=== PATIENT | female | born 1995 | race Caucasian/White ===

== ENCOUNTER 2016-08-20 15:37 | Emergency (ER) | payer BC, OTHER ==
[~2016-08-20] VITALS: Ht 157.5 cm; Wt 55.3 kg
--- NOTE | 2016-08-20 15:59 | NUR ---
A/O x 4, vss, nad noted; c/o sore throat x 3 days; fever; "brother had strep throat". Proceed w/ orders.
--- NOTE | 2016-08-20 16:16 | NUR ---
Patient discharged home in stable conditon. Written and verbal after care instructions given. Patient verbalizes understanding of instructions.
[2016-08-20 16:17] VITALS: BP 110/78
== END 2016-08-20 16:18 | disposition home or self-care (01) ==
LOC: ER 15:37
DX: J02.0 Streptococcal pharyngitis (principal)
CPT/HCPCS: A4663

== ENCOUNTER 2017-02-12 16:01 | Emergency (ER) | payer BC, OTHER ==
[~2017-02-12] VITALS: Ht 160 cm; Wt 55.3 kg
--- NOTE | 2017-02-12 17:05 | NUR ---
Patient discharged to home in stable conditon. Written and verbal after care instructions given. Patient verbalizes understanding of instructions.pt walks in steady gait.
== END 2017-02-12 17:06 | disposition home or self-care (01) ==
LOC: ER 16:03
DX: T63.301A Toxic effect of unspecified spider venom, accidental (unintentional), initial encounter (principal); B95.62 Methicillin resistant Staphylococcus aureus infection as the cause of diseases classified elsewhere; Y92.9 Unspecified place or not applicable
CPT/HCPCS: 99283; A4663

== ENCOUNTER 2017-02-14 13:26 | Emergency (ER) | payer BC, OTHER ==
[~2017-02-14] VITALS: Ht 160 cm; Wt 55.3 kg
[2017-02-14] MEDS ORDERED: SULF1TAB48 PO (13:34)
--- NOTE | 2017-02-14 13:40 | NUR ---
MSE DONE BY DR BEAULIEU AT BEDSIDE.
--- NOTE | 2017-02-14 13:56 | NUR ---
Patient discharged to home in stable conditon. Written and verbal after care instructions given. Patient verbalizes understanding of instructions.
== END 2017-02-14 14:01 | disposition home or self-care (01) ==
LOC: ER 13:38
DX: L03.116 Cellulitis of left lower limb (principal)
CPT/HCPCS: 99283; A4663